=== PATIENT | male | born 1965 | race Caucasian/White ===

== ENCOUNTER 2017-10-28 16:40 | Emergency (ER) | payer BC ==
[~2017-10-28] VITALS: Ht 177.8 cm; Wt 100.0 kg
[~2017-10-28 16:40] MED LIST: ASPIRIN EC81 MG PO; CEPHALEXIN500 MG PO; LISINOPRIL20 MG PO; METFORMIN500 MG PO
[2017-10-28] MEDS ORDERED: ALEVE220 MG PO (17:04)
[2017-10-28 17:50] VITALS: BP 137/85
== END 2017-10-28 17:50 | disposition home or self-care (01) | DRG 603 ==
LOC: ED 16:40
DX: L02.219 Cutaneous abscess of trunk, unspecified (principal); E11.9 Type 2 diabetes mellitus without complications; F17.290 Nicotine dependence, other tobacco product, uncomplicated; Z86.73 Personal history of transient ischemic attack (TIA), and cerebral infarction without residual deficits; Z95.2 Presence of prosthetic heart valve

== ENCOUNTER 2020-08-12 12:53 | Emergency (ER) | payer SELFPAY ==
[~2020-08-12] VITALS: Ht 177.8 cm; Wt 100.0 kg
[~2020-08-12 12:53] MED LIST changes: +ALEVE220 MG PO
[2020-08-12 13:33] LABS: IMMATURE GRANULOCYTES 0.1 % (0.0-5.0); MEAN CORPUSCULAR HGB 28.4 pG CALC (26.0-32.0); MEAN CORPUSCULAR HGB CONC 31.7 g/dL CAL (32.0-36.0); NEUT# 6.54 thou/uL (1.82-7.42); RED BLOOD COUNT 4.57 mill/uL (4.70-6.10); RED CELL DISTRI WIDTH 14.4 % (11.5-15.5)
[2020-08-12 13:34] LABS: MEAN CELL VOLUME 89.7 fL CALC (80.0-100.0)
[2020-08-12 13:43] LABS: ALBUMIN 3.5 g/dL (3.2-5.0); ALKALINE PHOSPHATASE 79 u/l (38-126); BUN 13 mg/dL (9-20); BUN/CREATININE RATIO 14 (12-20 (CALC)); CARBON DIOXIDE 26 mmol/l (22-30); CHLORIDE 104 mmol/l (95-108); CREATININE 0.9 mg/dL (0.7-1.3); GFR > 60 ML/MIN (>=60 (CALC)); GFR FOR AFR.AMER. > 60 ML/MIN (>=60 (CALC)); SGOT/AST 26 u/l (17-59); SODIUM 137 mmol/l (137-146); TOTAL PROTEIN 6.8 g/dL (6.3-8.2)
[2020-08-12 13:44] LABS: ANION GAP 11 (6-22 (CALC)); POTASSIUM 4.4 mmol/l (3.5-5.1)
[2020-08-12 15:15] LABS: URINE BILIRUBIN - DIPSTICK NEGATIVE (NEGATIVE); URINE BLOOD DIPSTICK NEGATIVE (NEGATIVE); URINE COLOR YELLOW; URINE GLUCOSE - DIPSTICK 250 mg/dL (NEGATIVE); URINE KETONE NEGATIVE (NEGATIVE); URINE LEUK ESTERASE NEGATIVE (NEGATIVE); URINE PH 6.5 (4.5-8.0); URINE PROTEIN - DIPSTICK NEGATIVE (NEG-TRACE); URINE SPECIFIC GRAVITY 1.015; URINE UROBILINOGEN - DIPSTICK 0.2 E.U./dL (0.2)
[2020-08-12 15:16] LABS: URINE NITRITE - DIPSTICK NEGATIVE (Negative)
[2020-08-12 15:55] VITALS: BP 126/76
[2020-08-12] MEDS ORDERED: LASIX 20 MG TAB20 MG PO (16:05)
[2020-08-12] MEDS ORDERED: K-TABS10 MEQ PO (16:05)
== END 2020-08-12 16:17 | disposition home or self-care (01) | DRG 293 ==
LOC: ED 12:53
DX: I50.9 Heart failure, unspecified (principal); E11.65 Type 2 diabetes mellitus with hyperglycemia; Z86.73 Personal history of transient ischemic attack (TIA), and cerebral infarction without residual deficits; Z95.2 Presence of prosthetic heart valve; Z79.84 Long term (current) use of oral hypoglycemic drugs
CPT/HCPCS: Q9967

== ENCOUNTER 2022-04-18 09:03 | Emergency (ER) | payer OTHER ==
[~2022-04-18] VITALS: Ht 177.8 cm; Wt 100.0 kg
[~2022-04-18 09:03] MED LIST changes: +K-TABS10 MEQ PO; +LASIX 20 MG TAB20 MG PO
[2022-04-18 09:42] VITALS: BP 140/86
[2022-04-18 10:00] VITALS: BP 141/82
[2022-04-18] MEDS ORDERED: HYDROCO/APAP1 T10 PO (18:44)
[2022-04-18] MEDS ORDERED: NARCAN4 MG/0.1 M (18:45)
[2022-04-18 18:54] VITALS: BP 141/82
[2022-04-19] MEDS ORDERED: HYDROCO/APAP1 T10 PO (17:51)
[2022-04-19] MEDS ORDERED: NARCAN4 MG/0.1 M (17:51)
[2022-04-20] MEDS ORDERED: NARCAN4 MG/0.1 M (18:09)
[2022-04-20] MEDS ORDERED: HYDROCO/APAP1 T10 PO (18:09)
== END 2022-04-18 19:25 | disposition home or self-care (01) | DRG 552 ==
LOC: ED 09:03
PROC: 2W3RX1Z Immobilization of Left Lower Leg using Splint (ICD-10-PCS; principal; 2022-04-18)
DX: S32.010A Wedge compression fracture of first lumbar vertebra, initial encounter for closed fracture (principal); S32.040A Wedge compression fracture of fourth lumbar vertebra, initial encounter for closed fracture; S82.52XA Displaced fracture of medial malleolus of left tibia, initial encounter for closed fracture; E11.9 Type 2 diabetes mellitus without complications; I10 Essential (primary) hypertension; V59.40XA Driver of pick-up truck or van injured in collision with unspecified motor vehicles in traffic accident, initial encounter; Z86.73 Personal history of transient ischemic attack (TIA), and cerebral infarction without residual deficits; Z95.2 Presence of prosthetic heart valve

== ENCOUNTER 2023-10-31 20:10 | Emergency (ER) | payer SELFPAY ==
[~2023-10-31 20:10] MED LIST changes: +HYDROCO/APAP1 T10 PO; +NARCAN4 MG/0.1 M
== END 2023-10-31 20:23 | disposition left against medical advice (07) | DRG 951 ==
LOC: ED 20:10 → LWOBS 20:23
DX: Z53.21 Procedure and treatment not carried out due to patient leaving prior to being seen by health care provider (principal)

== ENCOUNTER 2024-02-05 19:35 | Emergency (ER) | payer SELFPAY ==
[~2024-02-05] VITALS: Ht 177.8 cm; Wt 81.0 kg
[2024-02-05 19:43] VITALS: BP 129/84
[2024-02-05] MEDS ORDERED: MORPHINE SULFATE 4 MG/ML VIAL IV ONE (19:50)
[2024-02-05] MEDS ORDERED: ONDANSETRON HCl 4 MG/2 ML SDV IV ONE (19:50)
[2024-02-05] MEDS ORDERED: ASPIRIN 81 MG/TAB PO ONE (19:50)
[2024-02-05] MEDS ORDERED: SODIUM CHLORIDE 0.9% 1,000 ML IV ONE (19:55)
[2024-02-05] MEDS ORDERED: NITROGLYCERIN 2% OINT UD 1 GM/PAK TD ONE (19:55)
[2024-02-05 20:00] VITALS: BP 119/80
[2024-02-05 20:05] LABS: BASO% 0.4 % (0-3); EOS% 1.8 % (0-8); HEMATOCRIT 44.9 % (39.0-50.0); HEMOGLOBIN 14.8 g/dl (14.0-18.0); IMMATURE GRANULOCYTES 0.1 % (0.0-5.0); LYMPH% 17.9 % (15-41); MEAN CELL VOLUME 91.6 fL CALC (80.0-100.0); MEAN CORPUSCULAR HGB 30.2 pG CALC (26.0-32.0); MONO% 8.6 % (2-13); NEUT# 5.48 thou/uL (1.82-7.42); NEUT% 71.2 % (42-76); RED BLOOD COUNT 4.9 mill/uL (4.70-6.10); RED CELL DISTRI WIDTH 13.1 % (11.5-15.5)
[2024-02-05 20:14] LABS: ALBUMIN 4.2 g/dL (3.2-5.0); BILIRUBIN, TOTAL 0.6 mg/dL (0.2-1.3); TOTAL PROTEIN 7.7 g/dL (6.3-8.2)
[2024-02-05 20:31] VITALS: BP 123/75
[2024-02-05] MEDS ORDERED: Iopamidol 370 (Isovue) 76% 100 ML SDV IV ONE (20:45)
[2024-02-05 21:03] VITALS: BP 136/88
[2024-02-05] MEDS ORDERED: Heparin SODIUM (Porcine) 5,000 UNITS/ML SDV IV ONE (22:30)
[2024-02-05] MEDS ORDERED: Heparin SODIUM (Porcine) 500 ML IV ONE (22:30)
[2024-02-05 23:43] VITALS: BP 136/88
== END 2024-02-05 23:45 | disposition short-term general hospital (02) | DRG 282 ==
LOC: ED 19:35
PROVIDERS: Family Medicine
DX: I21.4 Non-ST elevation (NSTEMI) myocardial infarction (principal); J98.8 Other specified respiratory disorders; B97.89 Other viral agents as the cause of diseases classified elsewhere; I10 Essential (primary) hypertension; E11.9 Type 2 diabetes mellitus without complications; Z86.73 Personal history of transient ischemic attack (TIA), and cerebral infarction without residual deficits; Z95.2 Presence of prosthetic heart valve; Z20.822 Contact with and (suspected) exposure to COVID-19
CPT/HCPCS: J1644; J2405; Q9967